=== PATIENT | female | born 1940 | race Caucasian/White ===

== ENCOUNTER 2016-09-20 16:28 | Emergency (ER) | payer MEDICARE, OTHER ==
[2016-09-20 16:45] VITALS: BP 103/66
[2016-09-20] MEDS ORDERED: NORMAL SALINE 1000 ML 1,000 ML IV ONE (17:39)
[2016-09-20] MEDS ORDERED: ONDANSETRON 4 MG TAB.RAPDIS PO ONE (17:39)
--- NOTE | 2016-09-20 17:41 | ER Document Report ---
ED Medical Screen (RME) - General Chief Complaint: Flu Symptoms Stated Complaint: CHILLS,COLD,FEVER Time seen by provider: 17:36 Mode of Arrival: Wheelchair Information source: Patient Notes: 76 yo normally healthy female non smoker developed myalgias, chills, dry throat , headache, clear nasal mucous, and cough since 09-19 afternoon. Feels miserable. Last time she felt like this she had pneumonia. Did not get flu shot. No urinary symptoms. PMD: [facility]. TRAVEL OUTSIDE OF THE [place] IN LAST 30 DAYS: No - Related Data Allergies/Adverse Reactions: epinephrine [Epinephrine] Allergy (Verified 09/20/16 17:35) Penicillins Allergy (Verified 09/20/16 17:35) Sulfa (Sulfonamide Antibiotics) Allergy (Verified 09/20/16 17:35) Past Medical History Pulmonary Medical History: Reports: Hx Sleep Apnea - CPAP Renal/ Medical History: Reports: Hx Kidney Stones Physical Exam - Vital signs Vitals: Temp Pulse Resp BP Pulse Ox 98.7 F 91 18 103/66 96 09/20/16 16:43 09/20/16 16:43 09/20/16 16:43 09/20/16 16:43 09/20/16 16:43 Course - Vital Signs Vital signs: Temp Pulse Resp BP Pulse Ox 98.7 F 91 18 103/66 96 09/20/16 16:43 09/20/16 16:43 09/20/16 16:43 09/20/16 16:43 09/20/16 16:43
[2016-09-20] MEDS ORDERED: ACETAMINOPHEN 325 MG TABLET PO ONE (17:42)
[2016-09-20 19:01] LABS: ABSOLUTE BASOPHILS # (AUTO) 0.1 10^3/uL (0.0-0.2); ABSOLUTE LYMPHOCYTES (AUTO) 0.9 10^3/uL (0.5-4.7); ABSOLUTE MONOCYTES (AUTO) 0.7 10^3/uL (0.1-1.4); BASOPHILS % (AUTO) 0.6 % (0-2); EOSINOPHILS % (AUTO) 0.2 % (0-6); HEMATOCRIT 41.1 % (36.0-47.0); HEMOGLOBIN 14.4 g/dL (12.0-15.5); HGB HCT DIFFERENCE 2.1; LYMPHOCYTES % (AUTO) 10.1 % (13-45); MEAN CORPUSCULAR HEMOGLOBIN 33.5 pg (27.0-33.4); MEAN CORPUSCULAR VOLUME 96 fl (80-97); MONOCYTES % (AUTO) 8.4 % (3-13); RED BLOOD COUNT 4.29 10^6/uL (3.72-5.28); RED CELL DISTRIBUTION WIDTH 13.2 % (11.5-14.0); SEGMENTED NEUTROPHILS % (AUTO) 80.7 % (42-78); WHITE BLOOD COUNT 8.7 10^3/uL (4.0-10.5)
[2016-09-20 19:18] LABS: APPEARANCE,URINE CLOUDY; BILIRUBIN,URINE NEGATIVE (NEGATIVE); CALCIUM OXALATE CRYSTALS,URINE TOO NUMEROUS TO CNT /HPF; GLUCOSE, URINE NEGATIVE (NEGATIVE); KETONES,URINE 20 mg/dL (NEGATIVE); LEUKOCYTE ESTERASE,URINE NEGATIVE (NEGATIVE); NITRITE,URINE NEGATIVE (NEGATIVE); PROTEIN,URINE NEGATIVE (NEGATIVE); URINE SPECIFIC GRAVITY 1.021; UROBILINOGEN,URINE NEGATIVE mg/dL (<2.0)
[2016-09-20 19:24] LABS: ALANINE AMINOTRANSFERASE 33 U/L (9-52); ALBUMIN 4.2 g/dL (3.5-5.0); ALKALINE PHOSPHATASE 82 U/L (38-126); ANION GAP 12 (5-19); ASPARTATE AMINO TRANSFERASE 30 U/L (14-36); BILIRUBIN,TOTAL 1.4 mg/dL (0.2-1.3); BLOOD UREA NITROGEN 12 mg/dL (7-20); CALCIUM 9.5 mg/dL (8.4-10.2); CARBON DIOXIDE 26 mmol/L (22-30); CHLORIDE 100 mmol/L (98-107); CREATININE RESULT 0.81 mg/dL (0.52-1.25); GLUCOSE 103 mg/dL (75-110); POTASSIUM 4.6 mmol/L (3.6-5.0); SODIUM 137.8 mmol/L (137-145); TOTAL PROTEIN 6.6 g/dL (6.3-8.2)
[2016-09-20] MEDS ORDERED: DEXAMETHASONE SOD PHOS INJ 10 MG/1 ML VIAL IM ONE (22:27)
[2016-09-20] MEDS ORDERED: AZITHROMYCIN 250 MG TABLET PO ONE (22:27)
--- NOTE | 2016-09-20 22:31 | ER Document Report ---
ED General - General Chief Complaint: Flu Symptoms Stated Complaint: CHILLS,COLD,FEVER Mode of Arrival: Wheelchair Notes: Patient is a 76-year-old female presents with complaint of having nasal congestion, cough, feeling weak. No fevers. No vomiting. No diarrhea. No abdominal pain. No chest pain. She did not have a flu shot this year. No other complaints at this time. TRAVEL OUTSIDE OF THE [place] IN LAST 30 DAYS: No - Related Data Allergies/Adverse Reactions: epinephrine [Epinephrine] Allergy (Verified 09/20/16 17:35) Penicillins Allergy (Verified 09/20/16 17:35) Sulfa (Sulfonamide Antibiotics) Allergy (Verified 09/20/16 17:35) Past Medical History - General Information source: Patient - Social History Smoking Status: Never Smoker Frequency of alcohol use: None Drug Abuse: None Family History: Reviewed & Not Pertinent Pulmonary Medical History: Reports: Hx Sleep Apnea - CPAP Renal/ Medical History: Reports: Hx Kidney Stones Review of Systems - Review of Systems Notes: My Normal Review Basic REVIEW OF SYSTEMS: CONSTITUTIONAL : Denies fever, chills, or sweats. Denies recent illness. EENT: Nasal congestion. CARDIOVASCULAR: Denies chest pain. RESPIRATORY: Cough. GASTROINTESTINAL: Denies abdominal pain. Denies nausea, vomiting, or diarrhea. Denies constipation. Last BM: GENITOURINARY: Denies difficulty urinating, painful urination, burning, frequency, or blood in urine. MUSCULOSKELETAL: Denies neck or back pain or joint pain or swelling. SKIN: Denies rash or skin lesions. NEUROLOGICAL: Denies altered mental status or loss of consciousness. Denies headache. Denies weakness or paralysis or loss of use of either side. Denies problems with gait or speech. Denies sensory or motor loss. ALL OTHER SYSTEMS REVIEWED AND NEGATIVE. Physical Exam - Vital signs Vitals: Temp Pulse Resp BP Pulse Ox 98.7 F 91 18 103/66 96 09/20/16 16:43 09/20/16 16:43 09/20/16 16:43 09/20/16 16:43 09/20/16 16:43 - Notes Notes: General Appearance: Well nourished, alert, cooperative, no acute distress, no obvious discomfort. Vitals: reviewed, See vital signs table. Head: no swelling or tenderness to the head Eyes: PERRL, EOMI, Conjuctiva clear Mouth: No decreasd moisture Nose: Obvious audible nasal congestion exam. Nose is red from her using tissues frequently. Throat: No tonsillar inflammation, No airway obstruction, No lymphadenopathy Ears: Normal appearing pink membranes Neck: Supple, no neck tenderness, No thyromegaly Lungs: No wheezing, No rales, No rhonci, No accessory muscle use, good air exchange bilaterally. Heart: Normal rate, Regular rythm, No murmur, no rub Abdomen: Normal BS, soft, No rigidity, No abdominal tenderness, No guarding, no rebound, no abdominal masses, no organomegaly Extremities: strength 5/5 in all extremities, good pulses in all extremities, no swelling or tenderness in the extremities, no edema. Skin: warm, dry, appropriate color, no rash Neuro: speech clear, oriented x 3, normal affect, responds appropriately to questions. Course - Vital Signs Vital signs: Temp Pulse Resp BP Pulse Ox 98.7 F 91 18 103/66 96 09/20/16 16:43 09/20/16 16:43 09/20/16 16:43 09/20/16 16:43 09/20/16 16:43 - Laboratory Result Diagrams: 09/20/16 18:37 09/20/16 18:37 Laboratory results interpreted by me: 09/20/16 09/20/16 09/20/16 18:37 18:37 18:37 MCH 33.5 H Seg Neutrophils % 80.7 H Lymphocytes % 10.1 L Total Bilirubin 1.4 H Urine Ketones 20 H Urine Ascorbic Acid 40 H - Transfer of Care Notes: 09/21/16 06:00 On exam patient has no fever. Her lung becerra are clear. X-ray is negative. No diarrhea. No vomiting. She's been drinking liquids in the room without any nausea or vomiting and falling down well. At this time I feel she is safe to be discharged home. I will give her a dose Decadron help with her congestion. Encourage her to follow closely with her primary care doctor for close reevaluation. I encourage her to return to ER immediately she has any fevers, difficulty breathing, or feels that she is worsening. Patient agrees with plan and will be discharged home. Due to her age recurrent cough I was still place her on azithromycin. Dictation of this chart was performed using voice recognition software; therefore, there may be some unintended grammatical errors. 09/21/16 06:01 Discharge - Discharge Clinical Impression: URI (upper respiratory infection) Qualifiers: URI type: unspecified URI Qualified Code(s): J06.9 - Acute upper respiratory infection, unspecified Condition: Good Disposition: HOME, SELF-CARE Additional Instructions: UPPER RESPIRATORY ILLNESS: You have a viral infection of the respiratory passages -- a "cold." This common infection causes nasal congestion, drainage, and often sore throat and cough. It is highly contagious. The disease usually lasts about 10 to 14 days. There is no "cure" for the viral infection -- it must run its course. If there is a complication, such as bacterial infection in the nose, sinuses, middle ear, or bronchial tubes, antibiotics may be required. The antibiotics won't affect the virus. Drink plenty of fluids. A humidifier may help. An expectorant medication or decongestant may make you more comfortable. Use acetaminophen or ibuprofen for fever or aches. See the doctor if fever persists over two days, if there is any significant worsening of your symptoms, or if you simply fail to improve as expected. DECONGESTANT MEDICATION: A decongestant medicine has been prescribed. Often this medicine is combined in the same tablet with an antihistamine or expectorant. This type of medicine is helpful in treating a bad cold or sinus condition, as well as in treatment of the nasal congestion of hay fever. It is not of much benefit for lung infections. Decongestant medicines are related to stimulants. They can cause an increase in blood pressure and heart rate. Persons with heart disease and high blood pressure should not take decongestants without discussing this with the physician. If you develop palpitations, chest pain, headache, or tremors, stop the medicine and consult your physician. STEROID MEDICATION: You have been given an injection of or oral medicine of the cortisone/ steroid class. This medication is used to control inflammation or allergy. Aramis t is usually only given for a short period of time, until the acute process subsides. There are usually no side effects from short-term use of cortisone-like medications. Some persons feel an increased sense of well-being and are not sleepy at bedtime. Long-term use of cortisone medications is best avoided, unless required for a severe condition. If your condition does not remit, or relapses after the course of corticosteroid medication, you should consult your physician. FOLLOW-UP CARE: If you have been referred to a physician for follow-up care, call the physician s office for an appointment as you were instructed or within the next two days. If you experience worsening or a significant change in your symptoms, notify the physician immediately or return to the Emergency Department at any time for re-evaluation. If you are not starting to feel improvement in 24 hours please return to the ER. Please return to the ER immediately if you develop fevers, difficulty breathing, vomiting, or feel the your are worsening. Please drink lots of noncaffeinated fluids. Pedialyte is a good electrolyte fluid that may help you feel improved. Prescriptions: Azithromycin 250 mg PO DAILY #4 tablet Pseudoephedrine HCl 30 mg PO BID PRN #15 tablet PRN Reason: sinus congestion Referrals: LUZMA LUTHER MD [Primary Care Provider] - Follow up tomorrow
== END 2016-09-20 23:58 | disposition home or self-care (01) ==
LOC: ER 16:28
DX: J06.9 Acute upper respiratory infection, unspecified (principal); R09.81 Nasal congestion; R68.83 Chills (without fever); R53.1 Weakness; Z88.0 Allergy status to penicillin; Z88.2 Allergy status to sulfonamides; Z87.442 Personal history of urinary calculi
CPT/HCPCS: 99283; 96374; 36415; 85025; 80053; 81001; 87804; 71020; A9270 ×3; J1100; S0119

== ENCOUNTER 2016-09-24 10:47 | Emergency (ER) | payer MEDICARE, OTHER ==
--- NOTE | 2016-09-24 10:59 | ER Document Report ---
ED Medical Screen (RME) - General Stated Complaint: CONFUSED,DIZZY Time seen by provider: 10:57 Mode of Arrival: Wheelchair Information source: Patient Notes: 76 yo female presents to ed for dizziness confusion weakness continues from wednesday. Near syncopal episode when came in ed. TRAVEL OUTSIDE OF THE [place] IN LAST 30 DAYS: No - HPI Onset: Last week Onset/Duration: Intermittent Quality of pain: No pain Severity: None Pain Level: Denies Associated Symptoms: Dizzy/lightheaded, Headache, Shortness of breath, Weakness , Other - blue around the mouth at times Exacerbated by: Denies Relieved by: Denies Similar symptoms previously: Yes Recently seen / treated by doctor: Yes - Related Data Smoking: Non-smoker Frequency of alcohol use: None Drug Abuse: None Allergies/Adverse Reactions: epinephrine [Epinephrine] Allergy (Verified 09/20/16 17:35) Penicillins Allergy (Verified 09/20/16 17:35) Sulfa (Sulfonamide Antibiotics) Allergy (Verified 09/20/16 17:35) Past Medical History Pulmonary Medical History: Reports: Hx Sleep Apnea - CPAP Renal/ Medical History: Reports: Hx Kidney Stones Physical Exam - Vital signs Vitals: Pulse Resp BP Pulse Ox 77 16 97/58 L 100 09/24/16 10:53 09/24/16 10:53 09/24/16 10:53 09/24/16 10:53 Course - Vital Signs Vital signs: Temp Pulse Resp BP Pulse Ox 77 16 97/58 L 100 09/24/16 10:53 09/24/16 10:53 09/24/16 10:53 09/24/16 10:53
[2016-09-24] MEDS ORDERED: NORMAL SALINE 1000 ML 500 ML IV ONE (11:25)
--- NOTE | 2016-09-24 11:54 | EKG REPORT ---
SEVERITY:- NORMAL ECG - SINUS RHYTHM : Confirmed by: Lina Reynaga 24-Sep-2016 11:53:56
[2016-09-24 12:35] LABS: ABSOLUTE EOSINOPHILS # (AUTO) 0.1 10^3/uL (0.0-0.6); ABSOLUTE LYMPHOCYTES (AUTO) 1.6 10^3/uL (0.5-4.7); ABSOLUTE MONOCYTES (AUTO) 0.6 10^3/uL (0.1-1.4); ABSOLUTE NEUT (AUTO) 4.3 10^3/uL (1.7-8.2); BASOPHILS % (AUTO) 0.6 % (0-2); EOSINOPHILS % (AUTO) 0.8 % (0-6); HEMATOCRIT 40.4 % (36.0-47.0); HEMOGLOBIN 14.2 g/dL (12.0-15.5); HGB HCT DIFFERENCE 2.2; LYMPHOCYTES % (AUTO) 23.8 % (13-45); MEAN CORPUSCULAR HEMOGLOBIN 33.4 pg (27.0-33.4); MEAN CORPUSCULAR HGB CONC 35.1 g/dL (32.0-36.0); MEAN CORPUSCULAR VOLUME 95 fl (80-97); MONOCYTES % (AUTO) 9.7 % (3-13); RED BLOOD COUNT 4.24 10^6/uL (3.72-5.28); RED CELL DISTRIBUTION WIDTH 13.1 % (11.5-14.0); SEGMENTED NEUTROPHILS % (AUTO) 65.1 % (42-78); WHITE BLOOD COUNT 6.5 10^3/uL (4.0-10.5)
[2016-09-24 12:49] LABS: APPEARANCE,URINE CLOUDY; BILIRUBIN,URINE NEGATIVE (NEGATIVE); GLUCOSE, URINE NEGATIVE (NEGATIVE); KETONES,URINE NEGATIVE (NEGATIVE); LEUKOCYTE ESTERASE,URINE NEGATIVE (NEGATIVE); NITRITE,URINE NEGATIVE (NEGATIVE); PROTEIN,URINE NEGATIVE (NEGATIVE); URINE SPECIFIC GRAVITY 1.015; UROBILINOGEN,URINE NEGATIVE mg/dL (<2.0)
[2016-09-24 13:03] LABS: ALANINE AMINOTRANSFERASE 35 U/L (9-52); ALBUMIN 3.3 g/dL (3.5-5.0); ALKALINE PHOSPHATASE 71 U/L (38-126); ANION GAP 10 (5-19); ASPARTATE AMINO TRANSFERASE 28 U/L (14-36); BILIRUBIN,TOTAL 0.6 mg/dL (0.2-1.3); BLOOD UREA NITROGEN 18 mg/dL (7-20); CALCIUM 9.2 mg/dL (8.4-10.2); CARBON DIOXIDE 29 mmol/L (22-30); CHLORIDE 103 mmol/L (98-107); CREATINE KINASE 45 U/L (30-135); CREATININE RESULT 0.81 mg/dL (0.52-1.25); GLUCOSE 68 mg/dL (75-110); POTASSIUM 4.3 mmol/L (3.6-5.0); SODIUM 141.8 mmol/L (137-145); TOTAL PROTEIN 5.8 g/dL (6.3-8.2)
[2016-09-24 13:09] LABS: URINE BARBITURATES SCREEN NEGATIVE; URINE METHADONE SCREEN NEGATIVE; URINE PHENCYCLIDINE SCREEN NEGATIVE
[2016-09-24 13:21] LABS: CREATINE KINASE MB 2.16 ng/mL (<4.55)
[2016-09-24 13:24] LABS: TROPONIN I < 0.012 ng/mL
[2016-09-24] MEDS ORDERED: DEXTROSE 50%-WATER 25 GM/50 ML DISP.SYRIN IV ONE (13:42)
[2016-09-24 13:44] LABS: THYROID STIMULATING HORMONE 1.3 uIU/mL (0.47-4.68)
[2016-09-24 14:17] LABS: LIPASE 155.3 U/L (23-300); MAGNESIUM 2.6 mg/dL (1.6-2.3)
--- NOTE | 2016-09-24 15:06 | ER Document Report ---
ED General - General Chief Complaint: General Weakness Stated Complaint: CONFUSED,DIZZY Mode of Arrival: Wheelchair TRAVEL OUTSIDE OF THE [place] IN LAST 30 DAYS: No - HPI Patient complains to provider of: generalized weakness confusion dizzy Notes: Patient states she was seen a few days ago diagnosed with URI given steroids and antibiotics states to class and a box a day however states that she feels a little confused and dizzy states that it fillet fog in her head. Patient otherwise is a no 3 patient states she was brought by her vjthaazd-qb-sel. Patient is able to recall most events of the day. Patient denies any unilateral weakness states that she just feels generally weak. Patient also states recently moved from [facility]. Patient states she has been having some possible increase in her depression is not follow-up her PCP or any psychiatric therapy for this. Otherwise patient states on have some mild congestion at this time her URI symptoms have improved denies fevers chills nausea vomiting trauma chest pain abdominal pain - Related Data Allergies/Adverse Reactions: epinephrine [Epinephrine] Allergy (Verified 09/20/16 17:35) Penicillins Allergy (Verified 09/20/16 17:35) Sulfa (Sulfonamide Antibiotics) Allergy (Verified 09/20/16 17:35) Home Medications: Current Home Medications No Home Medications 09/24/16 [History] Past Medical History - General Information source: Patient - Social History Smoking Status: Never Smoker Frequency of alcohol use: None Drug Abuse: None Family History: Reviewed & Not Pertinent Patient has suicidal ideation: No Patient has homicidal ideation: No Pulmonary Medical History: Reports: Hx Sleep Apnea - CPAP Renal/ Medical History: Reports: Hx Kidney Stones Review of Systems - Review of Systems Constitutional: No symptoms reported EENT: No symptoms reported Cardiovascular: No symptoms reported Respiratory: No symptoms reported Gastrointestinal: No symptoms reported Genitourinary: No symptoms reported Female Genitourinary: No symptoms reported Musculoskeletal: No symptoms reported Skin: No symptoms reported Hematologic/Lymphatic: No symptoms reported Neurological/Psychological: Confusion, Other - Dizzy -: Yes All other systems reviewed and negative Physical Exam - Vital signs Vitals: Pulse Resp BP Pulse Ox 77 16 97/58 L 100 09/24/16 10:53 09/24/16 10:53 09/24/16 10:53 09/24/16 10:53 Interpretation: Normal - General General appearance: Appears well, Alert - HEENT Head: Normocephalic, Atraumatic Eyes: Normal Pupils: PERRL - Respiratory Respiratory status: No respiratory distress Chest status: Nontender Breath sounds: Normal Chest palpation: Normal - Cardiovascular Rhythm: Regular Heart sounds: Normal auscultation Murmur: No - Abdominal Inspection: Normal Distension: No distension Bowel sounds: Normal Tenderness: Nontender Organomegaly: No organomegaly - Back Back: Normal, Nontender - Extremities General upper extremity: Normal inspection, Nontender, Normal color, Normal ROM , Normal temperature General lower extremity: Normal inspection, Nontender, Normal color, Normal ROM , Normal temperature, Normal weight bearing. No: Stacia's sign - Neurological Neuro grossly intact: Yes Cognition: Normal Orientation: AAOx4 Sonam Coma Scale Eye Opening: Spontaneous Sonam Coma Scale Verbal: Oriented Sonam Coma Scale Motor: Obeys Commands Sonam Coma Scale Total: 15 Speech: Normal Motor strength normal: LUE, RUE, LLE, RLE Sensory: Normal Notes: Neurological exam is inconsistent. Patient initially states she does not know the day or the date that is able to re-called a month. Patient also states that she does not know what the name of the hospital with that she's only been here for short time however she is aware that she is is at a hospital. Patient states that she just feels like there is a fog patient is able to otherwise answer other questions completely without difficulty. - Psychological Associated symptoms: Normal affect, Normal mood - Skin Skin Temperature: Warm Skin Moisture: Dry Skin Color: Normal Course - Re-evaluation Re-evalutation: 09/24/16 16:11 Patient is vyvredxt-vy-btq at bedside after IV fluids and evaluation. Patient was slightly orthostatic however did receive IVF. Patient states feeling much better. Twyiwedl-qr-[id number] states right now patient is her baseline self. That was pulled aside out of the room by the hyxaivgm-jl-ans states that there concerning is that the patient has been behaving strangely and that she has multiple complaints and complains of things possibly to get attention concern about depression also concern because the wugztqwc-zw-quu's actual mother is in the hospital at this time and requiring a lot of their attention states that whenever the attention is on the patient she seems to be doing very well however when there are other events that take them away from being with the patient patient started having vague complaints and requesting to come to the emergency room to be evaluated. At this time CT of the head chest x-ray labwork shows no critical etiology. Patient is that she is feeling much better neurological examination moving all 4 extremities ANO 3. At this time fill that with the rjpqezcy-il-abv taking care of the patient safe discharged home follow-up PCP. Ksnkreem-vc-pyq and patient agree - Vital Signs Vital signs: Temp Pulse Resp BP Pulse Ox 62 12 129/74 H 100 09/24/16 14:10 09/24/16 15:00 09/24/16 14:17 09/24/16 15:00 - Laboratory Result Diagrams: 09/24/16 12:15 09/24/16 12:15 Laboratory results interpreted by me: 09/24/16 09/24/16 09/24/16 12:15 12:15 13:05 Glucose 68 L POC Glucose Magnesium 2.6 H Ammonia < 8.7 L Total Protein 5.8 L Albumin 3.3 L Salicylates < 1.0 L Acetaminophen < 10 L 09/24/16 13:50 Glucose POC Glucose 162 H Magnesium Ammonia Total Protein Albumin Salicylates Acetaminophen Discharge - Discharge Clinical Impression: Dehydration, Dizziness Condition: Good Disposition: HOME, SELF-CARE Instructions: Dizziness ([facility]), Dehydration ([facility]), Hypoglycemia Diet ([facility]) Additional Instructions: Follow-up with your primary care physician. Return to ER symptoms worsen. Please be sure that you drinks any water to stay hydrated. Please eat a well- balanced diet
[2016-09-24 16:31] VITALS: BP 104/65
== END 2016-09-24 15:30 | disposition home or self-care (01) ==
LOC: ER 10:47
DX: E86.0 Dehydration (principal); R42 Dizziness and giddiness; R53.1 Weakness; R41.0 Disorientation, unspecified; Z88.0 Allergy status to penicillin; Z88.2 Allergy status to sulfonamides; Z87.442 Personal history of urinary calculi
CPT/HCPCS: 93005; 99285; 96361; 96374; 36415; 84439; 82553; 82962; 82140; 82550; 83690; 83735; 80307 ×3; 84443; 85025; 80053; 81001; 84484; 83036; 71020; 70450; 93010; J3490; J7030

== ENCOUNTER 2018-01-13 12:36 | Emergency (ER) | payer MEDICARE, OTHER ==
[2018-01-13 12:43] VITALS: BP 114/59
[2018-01-13] MEDS ORDERED: ACETAMINOPHEN 325 MG TABLET PO ONE (13:54)
--- NOTE | 2018-01-13 13:56 | ER Document Report ---
ED Medical Screen (RME) - General Chief Complaint: Head Injury with LOC Stated Complaint: FALL Time Seen by Provider: 01/13/18 13:54 Notes: RAPID MEDICAL EVALUATION DISCLOSURE I have seen this patient as part of a Rapid Medical Evaluation and, if applicable, placed any initially appropriate orders. The patient will be seen and fully evaluated, including a full history and physical exam, by a provider ( in Main ED or Fast Track) when a room becomes available. 77-year-old female here with complaints of and intermittently blurry vision that started just prior to arrival when a large heavy metal door swung closed and hit her on her forehead. She fell backwards against a wall and slowly slid down to the floor but did not fall down in such a way to have traumatic impact. She did have loss of consciousness for about 5 minutes. Her blurry vision was worse right after the incident but has improved some. She does not take any blood thinners. She denies any nausea vomiting numbness tingling weakness. TRAVEL OUTSIDE OF THE [place] IN LAST 30 DAYS: No - Related Data Allergies/Adverse Reactions: epinephrine [Epinephrine] Allergy (Verified 01/13/18 12:37) Penicillins Allergy (Verified 01/13/18 12:37) Sulfa (Sulfonamide Antibiotics) Allergy (Verified 01/13/18 12:37) Past Medical History Pulmonary Medical History: Reports: Hx Sleep Apnea - CPAP Renal/ Medical History: Reports: Hx Kidney Stones. Denies: Hx Peritoneal Dialysis Physical Exam - Vital signs Vitals: Temp Pulse Resp BP Pulse Ox 98.1 F 68 15 114/59 L 99 01/13/18 12:40 01/13/18 12:40 01/13/18 12:40 01/13/18 12:40 01/13/18 12:40 Course - Vital Signs Vital signs: Temp Pulse Resp BP Pulse Ox 98.1 F 68 15 114/59 L 99 01/13/18 12:40 01/13/18 12:40 01/13/18 12:40 01/13/18 12:40 01/13/18 12:40
--- NOTE | 2018-01-13 14:13 | RADIOLOGY REPORT (SQ) ---
EXAM DESCRIPTION: CT HEAD WITHOUT COMPLETED DATE/TIME: 01/13/2018 2:04 pm REASON FOR STUDY: s/p head injury w LOC COMPARISON: 09/24/2016. TECHNIQUE: Axial images acquired through the brain without intravenous contrast. Images reviewed wi th bone, brain and subdural windows. Additional sagittal and coronal reconstructions were generated. Images stored on PACS. All CT scanners at this facility use dose modulation, iterative reconstruction, and/or weight based d osing when appropriate to reduce radiation dose to as low as reasonably achievable (ALARA). [facility]: Dose Right [facility]: CareDose [facility]: Dose Right [facility]: Teradose 4D [facility]: [employer] RADIATION DOSE: CT Rad equipment meets quality standard of care and radiation dose reduction techniq ues were employed. CTDIvol: 53.2 mGy. DLP: 1017 mGy-cm. mGy. LIMITATIONS: None. FINDINGS: VENTRICLES: Normal size and contour. CEREBRUM: No masses. No hemorrhage. No midline shift. No evidence for acute infarction. Normal gra y/white matter differentiation. No areas of low density in the white matter. CEREBELLUM: No masses. No hemorrhage. No alteration of density. No evidence for acute infarction. EXTRAAXIAL SPACES: No fluid collections. No masses. ORBITS AND GLOBE: No intra- or extraconal masses. Normal contour of globe without masses. CALVARIUM: No fracture. PARANASAL SINUSES: No fluid or mucosal thickening. SOFT TISSUES: No mass or hematoma. OTHER: No other significant finding. IMPRESSION: NORMAL BRAIN CT WITHOUT CONTRAST. EVIDENCE OF ACUTE STROKE: NO. COMMENT: Quality ID # [id number]: Final reports with documentation of one or more dose reduction techniques (e.g., Automated exposure control, adjustment of the mA and/or kV according to patient size, use of iterative reconstruction technique) TECHNICAL DOCUMENTATION: JOB ID: [id number] [employer]- All Rights Reserved Reading location - IP/workstation name: [email or web address]
--- NOTE | 2018-01-13 14:22 | ER Document Report ---
ED General - General Chief Complaint: Head Injury with LOC Stated Complaint: FALL Time Seen by Provider: 01/13/18 13:54 Notes: 77-year-old female here with complaints of and intermittently blurry vision that started just prior to arrival when a large heavy metal door swung closed and hit her on her forehead. She fell backwards against a wall and slowly slid down to the floor but did not fall down in such a way to have traumatic impact. She did have loss of consciousness for about 5 minutes. Her blurry vision was worse right after the incident but has improved some. She does not take any blood thinners. She denies any nausea vomiting numbness tingling weakness. TRAVEL OUTSIDE OF THE [place] IN LAST 30 DAYS: No - Related Data Allergies/Adverse Reactions: epinephrine [Epinephrine] Allergy (Verified 01/13/18 12:37) Penicillins Allergy (Verified 01/13/18 12:37) Sulfa (Sulfonamide Antibiotics) Allergy (Verified 01/13/18 12:37) Past Medical History - Social History Smoking Status: Never Smoker Family History: Reviewed & Not Pertinent Patient has suicidal ideation: No Patient has homicidal ideation: No Pulmonary Medical History: Reports: Hx Sleep Apnea - CPAP Renal/ Medical History: Reports: Hx Kidney Stones. Denies: Hx Peritoneal Dialysis Review of Systems - Review of Systems Notes: See history of present illness for pertinent positive review of systems; otherwise all review of systems have been reviewed and are negative Physical Exam - Vital signs Vitals: Temp Pulse Resp BP Pulse Ox 98.1 F 68 15 114/59 L 99 01/13/18 12:40 01/13/18 12:40 01/13/18 12:40 01/13/18 12:40 01/13/18 12:40 - Notes Notes: PHYSICAL EXAMINATION: GENERAL: Well-appearing and in no acute distress. HEAD: Small 1 x 2 cm area of soft tissue swelling to mid forehead with minimal tenderness to palpation, normocephalic. EYES: Pupils equal round and reactive to light, extraocular movements intact, sclera anicteric, conjunctiva are normal. ENT: nares patent, oropharynx clear without exudates. Moist mucous membranes. NECK: Normal range of motion, supple without lymphadenopathy LUNGS: CTAB and equal. No wheezes rales or rhonchi. HEART: Regular rate and rhythm without murmurs ABDOMEN: Soft, no tenderness. No facial grimacing/wincing upon palpation. No guarding, no rebound. EXTREMITIES: Normal range of motion, no pitting edema. No cyanosis. NEUROLOGICAL: Cranial nerves grossly intact. Normal sensory/motor exams. Finger to nose coordination intact. Gait steady without ataxia PSYCH: Normal mood, normal affect. SKIN: Warm, Dry, normal turgor, no rashes or lesions noted Course - Re-evaluation Re-evalutation: 01/13/18 14:20 MEDICAL DECISION MAKING: Concern for intracranial hemorrhage versus soft tissue swelling versus concussion type symptoms Low clinical suspicion for brain bleed but will obtain CT scan to further evaluate Patient declines Tylenol I have ordered for her Patient understands and agrees to the plan of care - Vital Signs Vital signs: Temp Pulse Resp BP Pulse Ox 98.1 F 68 15 114/59 L 99 01/13/18 12:40 01/13/18 12:40 01/13/18 12:40 01/13/18 12:40 01/13/18 12:40 Discharge - Discharge Clinical Impression: Head injury, closed Qualifiers: Encounter type: initial encounter Qualified Code(s): S09.90XA - Unspecified injury of head, initial encounter Condition: Good Disposition: HOME, SELF-CARE Additional Instructions: You were seen in the emergency department at [facility]. The head CT was negative and did not show any brain bleeds. Over the next 24-48 hours, please use Tylenol if needed for pain. Please followup with your primary physician in the next few days for further management/evaluation. Please return to the emergency department for worsening of symptoms or any symptom that you deem to be concerning or life-threatening. Thank you for allowing us to be part of your care.
== END 2018-01-13 14:19 | disposition home or self-care (01) ==
LOC: ER 12:36
DX: S09.90XA Unspecified injury of head, initial encounter (principal); H53.8 Other visual disturbances; R22.0 Localized swelling, mass and lump, head; W22.8XXA Striking against or struck by other objects, initial encounter
CPT/HCPCS: 70450; 99284

== ENCOUNTER 2020-09-27 06:58 | Emergency (ER) | payer MEDICARE, OTHER ==
--- NOTE | 2020-09-27 07:20 | ER Document Report ---
ED Medical Screen (RME) - General Chief Complaint: Chest Pain Stated Complaint: CHEST PAIN Time Seen by Provider: 09/27/20 07:16 Mode of Arrival: Medic Information source: Patient Notes: 80-year-old female presented to ED for complaint of chest pain times a couple days it was much worse tonight. She states she has had a lot of shortness of breath as well. She states she planned to go to get a Covid test today but she was very short of breath and had pain all night so she came into the emergency room instead. She states the pain is more on the left side and it does not radiate to the arm neck or jaw. States she does not have any significant medical history. She is allergic to penicillin epinephrine and sulfa. She states she does run a low blood pressure. She states she has not had any surgeries. Her blood pressure when EMS first got to her house was 127/60 the second was 94/60 then the third one was 110/70. They did give her 500 cc of normal saline. They did not give her nitro due to her low blood pressure. Is alert and oriented answering questions appropriately. Lungs were clear but she stated she was very short of breath. O2 sat is 100% respirations are between eight and 12. I have greeted and performed a rapid initial assessment of this patient. A comprehensive ED assessment and evaluation of the patient, analysis of test results and completion of medical decision making process will be conducted by an additional ED providers. TRAVEL OUTSIDE OF THE [place] IN LAST 30 DAYS: No - Related Data Allergies/Adverse Reactions: epinephrine [Epinephrine] Allergy (Verified 01/13/18 12:37) Penicillins Allergy (Verified 01/13/18 12:37) Sulfa (Sulfonamide Antibiotics) Allergy (Verified 01/13/18 12:37) Past Medical History Pulmonary Medical History: Reports: Hx Sleep Apnea - CPAP Renal/ Medical History: Reports: Hx Kidney Stones. Denies: Hx Peritoneal Dialysis Physical Exam - Vital signs Vitals: Resp 16 09/27/20 07:03 Course - Vital Signs Vital signs: Temp Pulse Resp BP Pulse Ox 13 106/66 100 09/27/20 07:05 09/27/20 07:05 09/27/20 07:05
[2020-09-27 07:28] LABS: ABSOLUTE LYMPHOCYTES (AUTO) 1.4 10^3/uL (0.5-4.7); ABSOLUTE MONOCYTES (AUTO) 0.5 10^3/uL (0.1-1.4); ABSOLUTE NEUT (AUTO) 1.5 10^3/uL (1.7-8.2); BASOPHILS % (AUTO) 0.8 % (0-2); EOSINOPHILS % (AUTO) 0.2 % (0-6); HEMATOCRIT 37.4 % (36.0-47.0); HEMOGLOBIN 12.9 g/dL (12.0-15.5); LYMPHOCYTES % (AUTO) 41.3 % (13-45); MEAN CORPUSCULAR HEMOGLOBIN 33.2 pg (27.0-33.4); MEAN CORPUSCULAR HGB CONC 34.6 g/dL (32.0-36.0); MEAN CORPUSCULAR VOLUME 96 fl (80-97); MONOCYTES % (AUTO) 13.8 % (3-13); PLATELET COUNT 199 10^3/uL (150-450); RED BLOOD COUNT 3.89 10^6/uL (3.72-5.28); RED CELL DISTRIBUTION WIDTH 13.5 % (11.5-14.0); SEGMENTED NEUTROPHILS % (AUTO) 43.9 % (42-78); TOTAL CELLS COUNTED % (AUTO) 100 %; WHITE BLOOD COUNT 3.4 10^3/uL (4.0-10.5)
[2020-09-27 07:39] LABS: ALBUMIN 3.2 g/dL (3.5-5.0); ALKALINE PHOSPHATASE 88 U/L (38-126); ASPARTATE AMINO TRANSFERASE 42 U/L (14-36); BILIRUBIN,DIRECT 0.1 mg/dL (0.0-0.4); BILIRUBIN,TOTAL 0.6 mg/dL (0.2-1.3); BLOOD UREA NITROGEN 13 mg/dL (7-20); CALCIUM 8.2 mg/dL (8.4-10.2); CHLORIDE 105 mmol/L (98-107); GLUCOSE 91 mg/dL (75-110); POTASSIUM 4.3 mmol/L (3.6-5.0); TOTAL PROTEIN 6.1 g/dL (6.3-8.2)
[2020-09-27 07:44] LABS: CARBON DIOXIDE 28 mmol/L (22-30)
[2020-09-27 07:46] LABS: ANION GAP 3 (5-19)
--- NOTE | 2020-09-27 08:10 | RADIOLOGY REPORT (SQ) ---
EXAM DESCRIPTION: CHEST SINGLE VIEW IMAGES COMPLETED DATE/TIME: 09/27/2020 7:42 am REASON FOR STUDY: chest pain possible covid EMS test positive COMPARISON: 09/24/2016 EXAM PARAMETERS: NUMBER OF VIEWS: One view. TECHNIQUE: Single frontal radiographic view of the chest acquired. RADIATION DOSE: NA LIMITATIONS: None. FINDINGS: LUNGS AND PLEURA: Emphysematous change with hyperinflation and biapical pleural thickening and scarring, stable. No new airspace disease, pleural effusion or pneumothorax. MEDIASTINUM AND HILAR STRUCTURES: No masses. Contour normal. HEART AND VASCULAR STRUCTURES: Borderline enlarged, stable. No edema. BONES: No acute findings. HARDWARE: None in the chest. OTHER: No other significant finding. IMPRESSION: Emphysematous change without evidence of acute cardiopulmonary process. TECHNICAL DOCUMENTATION: JOB ID: [id number] 2010 [employer]- All Rights Reserved Reading location - IP/workstation name: [email or web address]
[2020-09-27 12:13] LABS: C-REACTIVE PROTEIN < 5.0 mg/L (<10.0)
[2020-09-27 14:01] LABS: APPEARANCE,URINE SLIGHTLY-CLOUDY; BILIRUBIN,URINE NEGATIVE (NEGATIVE); COLOR,URINE YELLOW; GLUCOSE, URINE NEGATIVE (NEGATIVE); KETONES,URINE TRACE mg/dL (NEGATIVE); LEUKOCYTE ESTERASE,URINE LARGE (NEGATIVE); NITRITE,URINE POSITIVE (NEGATIVE); PROTEIN,URINE NEGATIVE (NEGATIVE); URINE SPECIFIC GRAVITY 1.011; UROBILINOGEN,URINE NEGATIVE mg/dL (<2.0)
[2020-09-27] MEDS ORDERED: CIPROFLOXACIN 400 MG/D5W RTU 400 MG/200 ML RTUPB IV ONE (14:08)
[2020-09-27] MEDS ORDERED: NORMAL SALINE 1000 ML 1,000 ML IV ONE (14:19)
--- NOTE | 2020-09-27 15:08 | ER Document Report ---
Entered by NIC MORGAN SCRIBE 09/27/20 0847 Acting as scribe for:CHRISTOPH ROSA MD ED General - General Chief Complaint: Chest Pain Stated Complaint: CHEST PAIN Time Seen by Provider: 09/27/20 07:16 Mode of Arrival: Medic Information source: Patient Notes: This 80 year old female patient with no significant past medical history presents to the ED today via EMS with complaints of sternal nonradiating chest pain described as a pressure that started last night. Denies associated shortness of breath or nausea. She states that when she was walking to the bathr oom, she felt diaphoretic and lightheaded. She also reports body aches and a low-grade fever. Denies cough, sore throat, headache, chills, nausea/vomiting/diarrhea, or abdominal pain. She received 324 mg Aspirin via EMS. She was also positive for COVID via EMS' rapid test. She states that the pain is "not as bad" compared to onset. Denies any sick contacts or known COVID exposure. She states that she used to smoke tobacco in her 20s. TRAVEL OUTSIDE OF THE [place] IN LAST 30 DAYS: No - Related Data Allergies/Adverse Reactions: epinephrine [Epinephrine] Allergy (Verified 01/13/18 12:37) Penicillins Allergy (Verified 01/13/18 12:37) Sulfa (Sulfonamide Antibiotics) Allergy (Verified 01/13/18 12:37) Home Medications: multi vitamin Past Medical History - General Information source: Patient, [facility] Records - Social History Smoking Status: Former Smoker Cigarette use (# per day): No Chew tobacco use (# tins/day): No Smoking Education Provided: No Frequency of alcohol use: None Drug Abuse: None Family History: Reviewed & Not Pertinent Pulmonary Medical History: Reports: Hx Sleep Apnea - CPAP Renal/ Medical History: Reports: Hx Kidney Stones Past Surgical History: Reports: Hx Orthopedic Surgery - Right total knee replacement Review of Systems - Review of Systems Constitutional: See HPI, Diaphoresis, Fever - low-grade. denies: Chills EENT: See HPI. denies: Throat pain Cardiovascular: See HPI, Chest pain Respiratory: See HPI. denies: Cough, Short of breath Gastrointestinal: See HPI. denies: Abdominal pain, Diarrhea, Nausea, Vomiting Genitourinary: No symptoms reported Female Genitourinary: No symptoms reported Musculoskeletal: See HPI, Muscle pain Skin: No symptoms reported Hematologic/Lymphatic: No symptoms reported Neurological/Psychological: See HPI. denies: Headaches -: Yes All other systems reviewed and negative Physical Exam - Vital signs Vitals: Resp 16 09/27/20 07:03 - General General appearance: Alert In distress: None - HEENT Head: Normocephalic, Atraumatic Eyes: Normal Extraocular movements intact: Yes Pupils: PERRL - Respiratory Respiratory status: No respiratory distress Chest status: Tender - Reproducuble mid-sternal chest wall pain, Accessory muscle use Chest palpation: Normal - Cardiovascular Rhythm: Regular Heart sounds: Normal auscultation Murmur: No - Abdominal Inspection: Normal Distension: No distension Bowel sounds: Normal Tenderness: Nontender - Abdomen soft Organomegaly: No organomegaly - Back Back: Normal, Nontender - Extremities General upper extremity: Normal inspection General lower extremity: Normal inspection. No: Edema - Neurological Neuro grossly intact: Yes Orientation: AAOx4 Sonam Coma Scale Eye Opening: Spontaneous Sonam Coma Scale Verbal: Oriented [place] Coma Scale Motor: Obeys Commands Sonam Coma Scale Total: 15 - Psychological Associated symptoms: Normal affect, Normal mood - Skin Skin Temperature: Warm Skin Moisture: Dry Skin Color: Normal Course - Re-evaluation Re-evalutation: 09/27/20 14:54 Patient resting not requiring any O2 support speech is clear no signs of respiratory distress. Patient does have a urinary tract infection and patient is to receive blood cultures and receiving IV ciprofloxacin at this time. - Vital Signs Vital signs: Temp Pulse Resp BP Pulse Ox 97.9 F 60 17 108/67 98 09/27/20 12:01 09/27/20 07:22 09/27/20 13:23 09/27/20 13:23 09/27/20 13:23 09/27/20 14:54 Vital signs stable - Laboratory Results Result Diagrams: 09/27/20 02:09 09/27/20 02:09 Laboratory Results Interpreted: 09/27/20 09/27/20 09/27/20 02:09 02:09 08:13 WBC 3.4 L Boyd % (Auto) 13.8 H Absolute Neuts (auto) 1.5 L Sodium 135.9 L Anion Gap 3 L Calcium 8.2 L AST 42 H Total Protein 6.1 L Albumin 3.2 L Urine Ketones TRACE H Urine Nitrite POSITIVE H Ur Leukocyte Esterase LARGE H Urine Ascorbic Acid 20 H 09/27/20 14:54 Laboratories essentially unremarkable except for a positive nitrite large leukocyte esterase urinalysis. Patient was diagnosed with a urinary tract infection. In route patient was tested by EMS on a rapid screen for Covid and patient is positive for COVID-19. Critical Laboratory Results Reviewed: Yes - Positive for COVID-19 per EMS report; enroute patient was tested by EMS with rapid COVID-19 screen. Attending or Supervising Physician who Reviewed Labs: Chest pain - Radiology Results Radiology Results Interpreted: 09/27/20 14:59 Chest X-Ray 09/27/20 07:17 IMPRESSION: Emphysematous change without evidence of acute cardiopulmonary process. Chest x-ray shows no acute process. Patient is chest x-ray does resemble emphysema. Critical Radiology Results Reviewed: No Critical Results - EKG Interpretation by Me Additional EKG results interpreted by me: 09/27/20 14:59 Twelve-lead EKG shows sinus bradycardia rate of 57 borderline left axis deviation low voltage in the frontal leads borderline inferior Q waves. Normal axis MN interval within normal range QRS within normal range QT interval within normal range peaked-appearing T waves. No acute STEMI. Discharge - Discharge Clinical Impression: COVID-19 virus RNA test result positive at limit of detection, Chest pain, Atypical chest pain, Urinary tract infection Condition: Stable Disposition: HOME, SELF-CARE Instructions: COVID-19 Guidance for Persons Under Investigation, Chest Wall Pain ([facility]), Nitrofurantoin ([facility]), Urinary Tract Infection ([facility]) Additional Instructions: You tested positive today for COVID-19 therefore we recommend that you inform all your family members who live in the household with you in close contact that they should be tested as well you should remain self quarantine for 2 weeks and also you should begin medications that are listed, and these are [id number] medications. Vitamin C 1000 mg twice a day x3 weeks, vitamin D 3 5000 international units once a day x3 weeks, zinc 50 mg 1 tablet once a day, and medications for fever or chills if needed which can be Tylenol and or ibuprofen. Prescriptions: Nitrofurantoin Monohyd/M-Cryst [Macrobid 100 mg Capsule] 100 mg PO BID #20 cap I personally performed the services described in the documentation, reviewed and edited the documentation which was dictated to the scribe in my presence, and it accurately records my words and actions.
[2020-09-27 17:50] VITALS: BP 103/61
--- NOTE | 2020-09-27 22:05 | EKG REPORT ---
SEVERITY:- BORDERLINE ECG - SINUS RHYTHM BORDERLINE LEFT AXIS DEVIATION LOW VOLTAGE IN FRONTAL LEADS BORDERLINE INFERIOR Q WAVES : Confirmed by: Lina Reynaga 27-Sep-2020 22:04:37
== END 2020-09-27 17:50 | disposition home or self-care (01) ==
LOC: ER 06:58
DX: U07.1 COVID-19 (principal); R07.9 Chest pain, unspecified; R61 Generalized hyperhidrosis; R42 Dizziness and giddiness; Z88.2 Allergy status to sulfonamides; Z88.0 Allergy status to penicillin
CPT/HCPCS: 93005; 99285; 96365; 36415; 87040; 87086; 82728; 83605; 83615; 83735; 85025; 0202U ×23; 86140; 87088; 80053; 81001; 84484; 87186; 85379; 83880; 71045; 93010; J7030; J0744; C9803